=== PATIENT | female | born 1945 | race Caucasian/White ===

== ENCOUNTER 2018-01-26 13:07 | Emergency (ER) | payer MEDICARE ==
[~2018-01-26] VITALS: Ht 167.6 cm; Wt 88.0 kg
[~2018-01-26 13:07] MED LIST: AZIT500T5 PO; CEFD300C37 PO; LORA-445 PO; LOSA50TA2 PO; OMEP-110 PO; PRED5TAB PO; VALS80TA3 PO
[2018-01-26 13:32] VITALS: BP 131/85
== END 2018-01-26 14:41 | disposition home or self-care (01) ==
LOC: ED 14:35
DX: H11.32 Conjunctival hemorrhage, left eye (principal)
CPT/HCPCS: 99282

== ENCOUNTER → 2020-08-21 | Outpatient (CLI) | payer MEDICARE ==
[~2020-08-21] MED LIST changes: +AZIT500T10 PO; -AZIT500T5 PO
== END | disposition home or self-care (01) ==
LOC: CFH 11:14
PROVIDERS: ATTEND Internal Medicine
DX: R05 Cough (principal); Z87.09 Personal history of other diseases of the respiratory system
CPT/HCPCS: 71046

== ENCOUNTER → 2020-09-21 | Outpatient (CLI) | payer MEDICARE | END | disposition home or self-care (01) | LOC: CFH 10:22 | PROVIDERS: ATTEND Internal Medicine | DX: J84.10 Pulmonary fibrosis, unspecified (principal); M51.34 Other intervertebral disc degeneration, thoracic region; R91.1 Solitary pulmonary nodule | CPT/HCPCS: 71046; 71250 ==